=== PATIENT | female | born 1960 | race African-American/Black ===

== ENCOUNTER → 2021-02-08 13:53 | Outpatient (CLI) | payer BC, SELFPAY ==
--- NOTE | ~2021-02-08 | US_ITS ---
EXAMINATION: US pelvic complete DATE: 02/08/2021 14:24 INDICATION: Uterine hypertrophy. Comparison:No prior studies for comparison. TECHNIQUE: Multiple transabdominal and endovaginal sonographic images of the pelvis performed. FINDINGS: The uterus measures 12.2 x 8.9 x 7.6 cm. There are multiple uterine fibroids which are ill- defined. The endometrial complex is not visualized due to fibroid changes. There are scattered calcif ications within the uterus. The ovaries are not visualized. There is no free fluid in the pelvis. There are no abnormal masses seen on either side. IMPRESSION: 1. Enlarged fibroid uterus. Reviewed, dictated and finalized at location A. ON DIPPER IMPRESSION: 1. Enlarged fibroid uterus.
== END ==
PROVIDERS: PCP Family Medicine; Visit Provider Nurse Practitioner
DX: N85.2 Hypertrophy of uterus (principal)
CPT/HCPCS: 76856